=== PATIENT | female | born 1990 | race Caucasian/White ===

== ENCOUNTER 2019-07-26 17:34 | Inpatient (IN) ==
[2019-07-26] MEDS ORDERED: ONDANSETRON 4 MG/2 ML VIAL IV PRN (18:26)
[2019-07-26 18:49] LABS: Hematocrit 37.7 VOL% (35.7-47.0); Hemoglobin 13.1 GM/DL (12.0-16.0); Mean Corpuscular HGB Conc 34.7 GM/DL (32-36); Mean Corpuscular Volume 92.4 FL (87-102); Red Blood Count 4.08 MC/CUMM (3.8-5.5); White Blood Count 11.2 T/CUMM (4-12)
[2019-07-26 18:50] LABS: Basophils # 0.1 10*3/uL (0.0-0.2); Basophils % 0.4 % (0.0-0.8); Eosinophils # 0.2 10*3/uL (0.0-0.87); Eosinophils % 1.8 % (0.00-10.9); Immature Granulocytes % 0.4 %; Immature Granulocytes Absolute 0.04 #; Lymphocytes # 2.7 10*3/uL (1.4-4.0); Mean Platelet Volume 12.4 FL (9.6-12.0); Monocytes % 8.1 % (1.7-12.7); Neutrophils % 65.3 % (38.7-73.9); Platelet Count 213 T/CUMM (130-400); Red Cell Distribution Width 13.2 % (9.3-17.3)
[2019-07-26] MEDS ORDERED: CITRIC ACID/SODIUM CITRATE 30 ML UDCUP PO ONE (19:29)
[2019-07-26] MEDS ORDERED: PROMETHAZINE 25 MG/1 ML VIAL IM PRN (19:29)
[2019-07-26] MEDS ORDERED: hydrOXYzine HCL 25 MG/1 ML VIAL IM PRN (19:29)
[2019-07-26] MEDS ORDERED: FAMOTIDINE 20 MG/2 ML VIAL IV ONE (19:29)
[2019-07-26] MEDS ORDERED: diphenhydrAMINE 50 MG/1 ML VIAL IV PRN (19:29)
[2019-07-26] MEDS ORDERED: NALOXONE 0.4 MG/ML VIAL IV PRN (19:29)
[2019-07-26] MEDS ORDERED: ePHEDrine 50 MG/ML AMP IV PRN (19:29)
[2019-07-26] MEDS ORDERED: fentaNYL 2 MCG/ROPIV 0.2% EPID 100 ML EPIDURAL SCH (19:30)
[2019-07-26] MEDS: LACTATED RINGERS 1,000 ML IV SCH (20:04)
[2019-07-26 23:02] LABS: Apearance,Urine CLEAR (Clear); Bilirubin,Urine Negative (Negative); Blood, Urine Negative (Negative); Glucose,Urine (UA) Negative (Negative); Ketones,Urine Negative (Negative); Nitrite,Urine Negative (Negative); Protein,Urine Negative; RBC,Urine 1 /HPF (0-4); Urine Color Colorless (Yellow); Urine Specific Gravity 1.003 (1.001-1.035); Urine Urobilinogen < 2.0 EU/DL (0.2-1.0)
[2019-07-26] MEDS ORDERED: OXYTOCIN/LR 20 UNIT/1,000 ML BAG IV ONE (23:58)
[2019-07-26] MEDS ORDERED: miSOPROStoL 200 MCG TABLET ONE (23:58)
[2019-07-26] MEDS ORDERED: TRANEXAMIC ACID 1,000 MG/10 ML VIAL ONE (23:58)
[2019-07-26] MEDS ORDERED: METHYLERGONOVINE 0.2 MG/1 ML AMP ONE (23:58)
[2019-07-26] MEDS ORDERED: CARBOPROST TROMETHAMINE 250 MCG/ML AMP IM ONE (23:59)
[2019-07-26] MEDS ORDERED: BUTORPHANOL 2 MG/ML VIAL ONE (23:59)
[2019-07-27] MEDS ORDERED: SODIUM CHLORIDE 0.9% 0 ML IV ONE
[2019-07-27] MEDS: LACTATED RINGERS 1,000 ML IV SCH (00:03)
[2019-07-27] MEDS ORDERED: OXYTOCIN/LR 20 UNIT/1,000 ML BAG IV SCH (00:20)
[2019-07-27] MEDS ORDERED: oxyCODONE/ACETAMINOPHEN 5-325 MG TABLET PO PRN ×2 (00:50)
[2019-07-27] MEDS ORDERED: RHO(D) IMMUNE GLOBULIN 300 MCG SYRINGE IM ONE (00:50)
[2019-07-27] MEDS ORDERED: OXYTOCIN/LR 20 UNIT/1,000 ML BAG IV ONE (00:50)
[2019-07-27] MEDS ORDERED: WITCH HAZEL PADS 100/JAR TOP PRN (00:50)
[2019-07-27] MEDS ORDERED: LANOLIN 50% CREAM 0.3 OZ TUBE TOP PRN (00:50)
[2019-07-27] MEDS ORDERED: HYDROCORTISONE 2.5% RECTAL CREAM 30 GM TUBE TOP PRN (00:50)
[2019-07-27] MEDS ORDERED: BENZOCAINE 20%/MENTHOL 0.5% SPRAY 56 GM CAN TOP PRN (00:50)
[2019-07-27] MEDS ORDERED: ACETAMINOPHEN 325 MG TABLET PO PRN (00:50)
[2019-07-27] MEDS ORDERED: DIPH/TET/ACEL PERT BOOSTER VACCINE 0.5 ML VIAL IM ONE (00:50)
[2019-07-27] MEDS ORDERED: BISACODYL 10 MG SUPP RECTAL PRN (00:50)
[2019-07-27] MEDS ORDERED: MEASLES/MUMPS/RUBELLA VACCINE 0.5 ML VIAL SUBCUT ONE (00:50)
[2019-07-27] MEDS ORDERED: ONDANSETRON 4 MG/2 ML VIAL IV PRN (00:50)
[2019-07-27] MEDS: IBUPROFEN 800 MG TABLET PO PRN ×2 (02:45→12:51)
[2019-07-27 06:27] LABS: Basophils # 0.1 10*3/uL (0.0-0.2); Basophils % 0.3 % (0.0-0.8); Eosinophils % 0.3 % (0.00-10.9); Hematocrit 37.3 VOL% (35.7-47.0); Hemoglobin 12.5 GM/DL (12.0-16.0); Immature Granulocytes % 0.5 %; Immature Granulocytes Absolute 0.07 #; Lymphocytes # 1.9 10*3/uL (1.4-4.0); Lymphocytes % 12.5 % (21.3-54.2); Mean Corpuscular HGB Conc 33.5 GM/DL (32-36); Mean Corpuscular Volume 95.9 FL (87-102); Mean Platelet Volume 11.4 FL (9.6-12.0); Monocytes % 6.3 % (1.7-12.7); Neutrophils % 80.1 % (38.7-73.9); Platelet Count 175 T/CUMM (130-400); Red Blood Count 3.89 MC/CUMM (3.8-5.5); Red Cell Distribution Width 13.3 % (9.3-17.3); White Blood Count 14.8 T/CUMM (4-12)
[2019-07-27] MEDS: MULTIVITAMIN (PRENATAL) TABLET PO SCH (12:50)
[2019-07-27] MEDS: DOCUSATE SODIUM 100 MG CAPSULE PO SCH ×2 (12:54→21:19)
[2019-07-28] MEDS ORDERED: RHO(D) IMMUNE GLOBULIN 300 MCG SYRINGE IM ONE (04:20)
[2019-07-28] MEDS: MULTIVITAMIN (PRENATAL) TABLET PO SCH (10:56)
[2019-07-28] MEDS: DOCUSATE SODIUM 100 MG CAPSULE PO SCH ×2 (10:57→21:09)
[2019-07-29 09:18] VITALS: BP 109/57
[2019-07-29] MEDS: DOCUSATE SODIUM 100 MG CAPSULE PO SCH (10:41)
[2019-07-29] MEDS: MULTIVITAMIN (PRENATAL) TABLET PO SCH (10:41)
== END 2019-07-29 12:30 | disposition home or self-care (01) | DRG 807 ==
LOC: N.LDOUT 17:34 → N.LD 17:36 → N.OB 07-27 12:57
PROVIDERS: ADMIT Obstetrics & Gynecology; ATTEND Obstetrics & Gynecology